=== PATIENT | male | born 1975 | race Caucasian/White ===

== ENCOUNTER 2020-12-12 18:35 | Emergency (ER) | payer MEDICAID ==
[~2020-12-12] VITALS: Ht 188 cm; Wt 88.5 kg
--- NOTE | 2020-12-12 19:15 | NUR ---
Dr. Mcintyre at bedside for MSE.
[2020-12-12] MEDS ORDERED: HYDROMORPHONE 1 MG/1 ML DISP.SYRIN IV ONE ×3 (19:30→22:15)
[2020-12-12] MEDS ORDERED: IV NORMAL SALINE 1000 ML BAG IV ONE (19:30)
[2020-12-12] MEDS ORDERED: ONDANSETRON 4 MG/2 ML VIAL IV ONE (19:30)
[2020-12-12] MEDS ORDERED: HYDROMORPHONE 1 MG/1 ML DISP.SYRIN ONE ×3 (19:34→22:36)
[2020-12-12] MEDS ORDERED: ONDANSETRON 4 MG/2 ML VIAL ONE ×2 (19:34→20:15)
--- NOTE | 2020-12-12 19:37 | NUR ---
Xray at bedside.
[2020-12-12 19:47] LABS: HEMATOCRIT 45.7 % (36.7-47.1); MEAN CORPUSCULAR HEMOGLOBIN 31.5 uug (23.8-33.4); MEAN CORPUSCULAR VOLUME 91.4 fL (73.0-96.2); PLATELET COUNT (AUTO) 233 K/uL (152-348)
[2020-12-12 19:51] LABS: CREATININE 1.2 mg/dL (0.6-1.3); POTASSIUM 4.3 mmol/L (3.5-5.1)
[2020-12-12 19:56] LABS: BILIRUBIN,DIRECT 0.1 mg/dL (0.0-0.2); BILIRUBIN,TOTAL 0.6 mg/dL (0.2-1.0); TOTAL PROTEIN, SERUM 7.3 g/dL (6.4-8.2)
[2020-12-12] MEDS ORDERED: KETOROLAC TROMETHAMINE 15 MG INJ IVP ONE (20:15)
[2020-12-12 20:29] LABS: *BILIRUBIN,URIN NEGATIVE (NEGATIVE); *CLARITY,URINE CLEAR (CLEAR); *COLOR,URINE YELLOW (YELLOW); *KETONES,URINE NEGATIVE (NEGATIVE); *UROBILINOGEN,URINE 0.2 E.U./dl (NORMAL); LEUKOCYTE ESTERASE ,URINE NEGATIVE (NEGATIVE); NITRITE, URINE NEGATIVE (NEGATIVE); PH,URINE 5.5 (5.0-8.0); UGLUCOSE NEGATIVE (NEGATIVE)
[2020-12-12] MEDS ORDERED: IOHEXOL 300MG/ML 100 ML INFUS..BTL ONE (20:31)
[2020-12-12] MEDS ORDERED: IV NORMAL SALINE 250 ML IV ONE (20:31)
[2020-12-12] MEDS ORDERED: SWABABLE VALVE TRANSFER SET EA MC ONE (20:31)
[2020-12-12 20:34] LABS: *BLOOD, URINE NEGATIVE (NEGATIVE)
--- NOTE | 2020-12-12 20:44 | NUR ---
Summary noteReport per director field services Juan Martinez, restless in [facility] 01/[address] Mcintyre order Dilauid 1 mg, Toradol 15 mg, Zofran 4 mg IVP. Left AC # 20 angio dressing dry intact. Reassess pain patient states 09/10, able to rest in [facility] . Sent to [place] at 2044 via [facility].
[2020-12-12] MEDS ORDERED: KETOROLAC TROMETHAMINE 15 MG INJ ONE (20:45)
[2020-12-12] MEDS ORDERED: ASPI81TA31 PO (23:13)
[2020-12-12] MEDS ORDERED: CLOP75TA33 PO (23:13)
[2020-12-12] MEDS ORDERED: PANT40TA49 PO (23:13)
[2020-12-12] MEDS ORDERED: AMLO-212 PO (23:13)
[2020-12-12] MEDS ORDERED: ATOR80TA PO (23:13)
[2020-12-12] MEDS ORDERED: METO25TA6 PO (23:13)
[2020-12-12] MEDS ORDERED: RANO500T3 PO (23:13)
[2020-12-13] MEDS ORDERED: HYDR-3980 PO (01:37)
[2020-12-13] MEDS ORDERED: IBUP-1957 PO (01:37)
[2020-12-13 02:04] VITALS: BP 120/78
--- NOTE | 2020-12-13 02:05 | NUR ---
#20 [address]io [address] dc'ed cath intact, dry dressing. patient tolerated well.
== END 2020-12-13 02:00 | disposition home or self-care (01) ==
LOC: ER 18:40
DX: N23 Unspecified renal colic (principal); N13.30 Unspecified hydronephrosis; R94.31 Abnormal electrocardiogram [ECG] [EKG]; K40.20 Bilateral inguinal hernia, without obstruction or gangrene, not specified as recurrent; K76.0 Fatty (change of) liver, not elsewhere classified; Z20.822 Contact with and (suspected) exposure to COVID-19; I25.2 Old myocardial infarction; Z95.5 Presence of coronary angioplasty implant and graft; Z87.442 Personal history of urinary calculi; Z88.2 Allergy status to sulfonamides
CPT/HCPCS: 36415; 71045; 74177; 80048; 80076; 81003; 83690; 84484 ×2; 85025; 85730; 87086; 87426; 93005; 96361; 96374; 96375; 96376; 99291; J1170 ×3; J1885; J2405 ×2; Q9967; 70030-TC; A4663; J7030; J7050

== ENCOUNTER 2021-04-23 06:35 | Emergency (ER) | payer MEDICAID ==
[~2021-04-23] VITALS: Ht 185.4 cm; Wt 88.5 kg
[~2021-04-23 06:35] MED LIST: AMLO-212 PO; ASPI81TA31 PO; ATOR80TA PO; CLOP75TA33 PO; HYDR-3980 PO; IBUP-1957 PO; METO25TA6 PO; PANT40TA49 PO; RANO500T3 PO
--- NOTE | 2021-04-23 07:02 | NUR ---
PT IS IN ROOM #1B. DR JUAREZ EVALUATED THE PT.
[2021-04-23] MEDS ORDERED: ONDANSETRON 4 MG/2 ML VIAL IV ONE (07:15)
[2021-04-23] MEDS ORDERED: IV NORMAL SALINE 1000 ML BAG IV ONE (07:15)
[2021-04-23] MEDS ORDERED: MORPHINE SULFATE 4 MG/1 ML DISP.SYRIN IV ONE (07:15)
[2021-04-23] MEDS ORDERED: MORPHINE SULFATE 4 MG/1 ML DISP.SYRIN ONE (07:31)
[2021-04-23] MEDS ORDERED: ONDANSETRON 4 MG/2 ML VIAL ONE (07:31)
[2021-04-23 07:36] LABS: *BILIRUBIN,URIN NEGATIVE (NEGATIVE); *CLARITY,URINE CLEAR (CLEAR); *COLOR,URINE YELLOW (YELLOW); *KETONES,URINE TRACE (NEGATIVE); *UROBILINOGEN,URINE 0.2 E.U./dl (NORMAL); LEUKOCYTE ESTERASE ,URINE NEGATIVE (NEGATIVE); NITRITE, URINE NEGATIVE (NEGATIVE); PH,URINE 6.5 (5.0-8.0); UGLUCOSE NEGATIVE (NEGATIVE)
[2021-04-23 07:37] LABS: HEMATOCRIT 43.7 % (36.7-47.1); MEAN CORPUSCULAR HEMOGLOBIN 31.3 uug (23.8-33.4); MEAN CORPUSCULAR VOLUME 90.1 fL (73.0-96.2); PLATELET COUNT (AUTO) 199 K/uL (152-348)
[2021-04-23] MEDS ORDERED: SWABABLE VALVE TRANSFER SET EA MC ONE (07:44)
[2021-04-23] MEDS ORDERED: IOHEXOL 300MG/ML 100 ML INFUS..BTL ONE (07:44)
[2021-04-23] MEDS ORDERED: IV NORMAL SALINE 250 ML IV ONE (07:44)
[2021-04-23 07:46] LABS: *BLOOD, URINE TRACE (NEGATIVE)
[2021-04-23 07:51] LABS: BILIRUBIN,DIRECT 0.3 mg/dL (0.0-0.2); BILIRUBIN,TOTAL 1.1 mg/dL (0.2-1.0); TOTAL PROTEIN, SERUM 7.4 g/dL (6.4-8.2)
[2021-04-23] MEDS ORDERED: FENTANYL CITRATE 100 MCG/2 ML AMPUL IV ONE (08:30)
[2021-04-23] MEDS ORDERED: FENTANYL CITRATE 100 MCG/2 ML AMPUL ONE (08:44)
[2021-04-23] MEDS ORDERED: FAMO-132 PO (10:17)
[2021-04-23] MEDS ORDERED: ONDA4TAB11 PO (10:17)
--- NOTE | 2021-04-23 10:35 | NUR ---
PT WAS D/C'd TO HOME. D/C INSTRUCTIONS GIVEN TO THE PT BY DR JUAREZ.
[2021-04-23 10:37] VITALS: BP 136/71
[2021-04-23 22:48] LABS: BACTERIA,URINE NONE SEEN /HPF (NONE SEEN); RBC,URINE 0-3 /HPF (0-3); SQUAMOUS EPITHELIAL CELL,UR NONE SEEN /HPF (NONE SEEN); WBC,URINE NONE SEEN /HPF (0-3)
[2021-04-23 22:49] LABS: CALCIUM OXALATE CRYSTALS,UR MODERATE /HPF (NONE SEEN)
== END 2021-04-23 10:38 | disposition home or self-care (01) ==
LOC: ER 06:40
DX: R10.13 Epigastric pain (principal); R11.10 Vomiting, unspecified; R19.7 Diarrhea, unspecified; I25.2 Old myocardial infarction; F17.210 Nicotine dependence, cigarettes, uncomplicated; Z88.2 Allergy status to sulfonamides; Z88.8 Allergy status to other drugs, medicaments and biological substances; Z79.1 Long term (current) use of non-steroidal anti-inflammatories (NSAID); Z79.82 Long term (current) use of aspirin; Z79.899 Other long term (current) drug therapy; Z20.822 Contact with and (suspected) exposure to COVID-19
CPT/HCPCS: 36415; 74177; 80048; 80076; 81001; 83690; 84484; 85025; 87426; 96361; 96374; 96375; 99285; J2270; J2405; J3010; Q9967; 70030-TC; A4663; J7030; J7050

== ENCOUNTER 2021-06-15 13:07 | Emergency (ER) | payer MEDICAID ==
[~2021-06-15] VITALS: Ht 185.4 cm; Wt 88.5 kg
[~2021-06-15 13:07] MED LIST changes: +FAMO-132 PO; +ONDA4TAB11 PO
[2021-06-15] MEDS ORDERED: ONDANSETRON 4 MG/2 ML VIAL IV ONE (13:30)
[2021-06-15] MEDS ORDERED: IV NORMAL SALINE 1000 ML BAG IV ONE (13:30)
[2021-06-15] MEDS ORDERED: HYDROMORPHONE 1 MG/1 ML DISP.SYRIN IV ONE (13:30)
[2021-06-15 13:45] LABS: HEMATOCRIT 41.5 % (36.7-47.1); MEAN CORPUSCULAR HEMOGLOBIN 31.5 uug (23.8-33.4); MEAN CORPUSCULAR VOLUME 89.3 fL (73.0-96.2); PLATELET COUNT (AUTO) 182 K/uL (152-348)
[2021-06-15] MEDS ORDERED: IV NORMAL SALINE 250 ML IV ONE (13:46)
[2021-06-15] MEDS ORDERED: SWABABLE VALVE TRANSFER SET EA MC ONE (13:46)
[2021-06-15] MEDS ORDERED: IOHEXOL 350 100 ML INFUS..BTL ONE (13:46)
[2021-06-15] MEDS ORDERED: HYDROMORPHONE 1 MG/1 ML DISP.SYRIN ONE (13:55)
[2021-06-15] MEDS ORDERED: ONDANSETRON 4 MG/2 ML VIAL ONE (13:55)
[2021-06-15 14:02] LABS: CARBON DIOXIDE 20 mmol/L (21-32); CHLORIDE 104 mmol/L (98-107); CREATININE 1.1 mg/dL (0.6-1.3); GLUCOSE 128 mg/dL (74-106); POTASSIUM 3.6 mmol/L (3.5-5.1); UREA NITROGEN, BLOOD 12 mg/dL (7-18)
[2021-06-15] MEDS ORDERED: CODE1CAP24 GT ×2 (15:35→15:38)
[2021-06-15] MEDS ORDERED: KETOROLAC TROMETHAMINE 30 MG INJ ONE (15:44)
[2021-06-15] MEDS ORDERED: KETOROLAC TROMETHAMINE 30 MG INJ IVP ONE (15:45)
--- NOTE | 2021-06-15 15:45 | NUR ---
Patient discharged to home in stable condition. Written and verbal after care instructions given. Patient verbalizes understanding of instructions. Stressed follow up or return to ER for worsening s/s.pt not driving. pt walks in steady gait. pain down to toleralable level.
[2021-06-15 15:46] VITALS: BP 109/61
== END 2021-06-15 15:50 | disposition home or self-care (01) ==
LOC: ER 13:07
DX: R51.9 Headache, unspecified (principal); I25.2 Old myocardial infarction; Z95.5 Presence of coronary angioplasty implant and graft; Z79.02 Long term (current) use of antithrombotics/antiplatelets; Z79.82 Long term (current) use of aspirin; Z79.899 Other long term (current) drug therapy; R94.31 Abnormal electrocardiogram [ECG] [EKG]
CPT/HCPCS: 36415; 70496; 80048; 84484; 85025; 85730; 96361; 96374; 96375; 99285; J1170; J1885; J2405; Q9967; A4663; J7030; J7050